=== PATIENT | female | born 1960 | race Caucasian/White ===

== ENCOUNTER 2023-09-13 19:09 | Emergency (ER) | payer SELFPAY ==
[2023-09-13 19:14] VITALS: BP 100/60; PULSE 63; O2SAT 98
--- NOTE | 2023-09-13 19:16 | ECG_ITS ---
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
--- NOTE | 2023-09-13 19:16 | CT_ITS ---
[address] [address] Patient Name: TISH BOSS MRN: [id number] date: 1960 Sex: F Assigned Patient Location: ER Current Patient Location: ED.MAIN Accession/Order Number: [id number] Exam Date: 09/13/2023 20:20 Report Date: 09/13/2023 21:40 At the request of: AMANDA ARAMBULA Procedure: CT angio chest Contrast-enhanced CTA of the chest, abdomen and pelvis dated 09/13/2023. Indication: Chest pain. Comparison: CT abdomen/pelvis 09/11/2021 . Technique: Thin section arterial phase images of the thorax, abdomen and pelvis before and after the injection of intravenous nonionic iodinated contrast. Advanced 3D post processing was performed at an independent work station to further evaluate the suspected abnormality of the vasculature. Findings: Vasculature: Heart is not enlarged. No thoracic aortic aneurysm or dissection. No significant atherosclerotic changes. Origins of the great vessels from the aortic arch are without significant stenosis. No dilatation of the iliac arteries. No pulmonary embolus identified. Chest: No pulmonary nodules, areas of airspace disease, pleural effusions, pericardial effusions or enlarged lymph nodes in the thorax. No pneumothorax. Abdomen/pelvis: Early arterial phase of imaging is dedicated for the vasculature and limited for the remainder of the abdomen and pelvis. Additionally assessment limited by lack of oral contrast. Moderate 2 severe peripancreatic and pancreatic interstitial edema. No overt pancreatic necrosis or loculated fluid collections. Probable reactive enteritis of the adjacent duodenum and proximal jejunal loops. Bilateral hypoattenuating renal lesions, some which are compatible with simple cysts and others which are too small to accurately characterize, and for which no imaging follow-up is recommended. The liver, spleen, adrenal glands are unremarkable. Gallbladder present. No enlarged lymph nodes, free fluid, or free air. The bowel is without evidence of obstruction or adjacent inflammatory changes. Bladder unremarkable. CT/CT angio chest IMPRESSION: 1. Acute interstitial edematous pancreatitis. Probable adjacent reactive enteritis. 2. No pulmonary embolism. 3. No aortic aneurysm or dissection. Electronically authenticated by: GARETH MADDEN Date: 09/13/2023 21:40
--- NOTE | 2023-09-13 19:16 | CT_ITS ---
[address] [address] Patient Name: TISH BOSS MRN: [id number] date: 1960 Sex: F Assigned Patient Location: ER Current Patient Location: ED.MAIN Accession/Order Number: [id number] Exam Date: 09/13/2023 20:20 Report Date: 09/13/2023 21:40 At the request of: AMANDA ARAMBULA Procedure: CT angio abdomen pelvis Contrast-enhanced CTA of the chest, abdomen and pelvis dated 09/13/2023. Indication: Chest pain. Comparison: CT abdomen/pelvis 09/11/2021 . Technique: Thin section arterial phase images of the thorax, abdomen and pelvis before and after the injection of intravenous nonionic iodinated contrast. Advanced 3D post processing was performed at an independent work station to further evaluate the suspected abnormality of the vasculature. Findings: Vasculature: Heart is not enlarged. No thoracic aortic aneurysm or dissection. No significant atherosclerotic changes. Origins of the great vessels from the aortic arch are without significant stenosis. No dilatation of the iliac arteries. No pulmonary embolus identified. Chest: No pulmonary nodules, areas of airspace disease, pleural effusions, pericardial effusions or enlarged lymph nodes in the thorax. No pneumothorax. Abdomen/pelvis: Early arterial phase of imaging is dedicated for the vasculature and limited for the remainder of the abdomen and pelvis. Additionally assessment limited by lack of oral contrast. Moderate 2 severe peripancreatic and pancreatic interstitial edema. No overt pancreatic necrosis or loculated fluid collections. Probable reactive enteritis of the adjacent duodenum and proximal jejunal loops. Bilateral hypoattenuating renal lesions, some which are compatible with simple cysts and others which are too small to accurately characterize, and for which no imaging follow-up is recommended. The liver, spleen, adrenal glands are unremarkable. Gallbladder present. No enlarged lymph nodes, free fluid, or free air. The bowel is without evidence of obstruction or adjacent inflammatory changes. Bladder unremarkable. CT/CT angio abdomen pelvis IMPRESSION: 1. Acute interstitial edematous pancreatitis. Probable adjacent reactive enteritis. 2. No pulmonary embolism. 3. No aortic aneurysm or dissection. Electronically authenticated by: GARETH MADDEN Date: 09/13/2023 21:40
--- NOTE | 2023-09-13 19:19 | ED.GENADUL1 ---
HPI HPI - General Adult General Chief complaint: Abdominal Pain Stated complaint: DIFF BREATHING, VOMITTING, ABD PAIN Time Seen by Provider: 09/13/23 19:10 History of Present Illness HPI narrative: Patient is a 63-year-old female who presents to the emergency department for sudden onset of diffuse abdominal pain radiating into the chest that began 30 minutes ago at rest. She had just finished eating dinner. She states she feels very short of breath and has been vomiting. Patient is yelling and moaning at initial interview and history is very difficult. She has a history of cardiomyopathy and sees [facility] for [facility]ology. She has had a previous cholecystectomy, appendectomy, total hysterectomy. She has not had any urinary symptoms or diarrhea. She states she just got back from [place] 1 week ago. She does not believe her legs are swollen. She has had cough, no fevers or other upper respiratory symptoms. Related Data Home Medications ?Medication ?Instructions ?Recorded ?Confirmed cyclobenzaprine 10 mg tablet 10 mg PO QAM 09/13/23 09/13/23 furosemide 20 mg tablet (Lasix) 20 mg PO DAILY 09/13/23 09/13/23 lorazepam 2 mg tablet 2 mg PO DAILY 09/13/23 09/13/23 metoprolol succinate 100 mg 100 mg PO DAILY 09/13/23 09/13/23 tablet,extended release 24 hr montelukast 10 mg tablet 10 mg PO DAILY 09/13/23 09/13/23 omeprazole 20 mg capsule,delayed 20 mg PO DAILY 09/13/23 09/13/23 release sacubitril 24 mg-valsartan 26 mg 1 tab PO BID 09/13/23 09/13/23 tablet (Entresto) spironolactone 25 mg tablet 25 mg PO DAILY 09/13/23 09/13/23 (Aldactone) Allergies Allergy/AdvReac Type Severity Reaction Status Date / Time No Known Drug Allergies Allergy Verified 09/13/23 19:25 Opioid HPI Opioid Management Most Recent Opioid Data: Last Pain Scale 10 09/13/23 19:31 Last JUL Pain Assessment 09/13/23 19:31 Review of Systems ROS Constitutional Denies: fever or chills Ears, nose, mouth, and throat Denies: throat pain or nasal congestion Cardiovascular Reports: chest pain Respiratory Reports: shortness of breath and cough Gastrointestinal Reports: abdominal pain, nausea and vomiting; Denies: diarrhea Musculoskeletal Denies: back pain or neck pain Integumentary/Breast Denies: rash Neurological Denies: headache Endocrine Denies: excessive urination Hematologic/Lymphatic Denies: easy bruising or easy bleeding Exam Narrative Exam Narrative: Gen.: Awake, Moaning Head: Normocephalic, atraumatic ENT: Moist mucous membranes Respiratory: No respiratory distress, lungs clear bilaterally, No wheezing or rhonchi Cardio: Regular rate and rhythm Gastrointestinal: Abdomen is soft, Obese and nondistended. Mildly tender in the epigastrium although there is no guarding or rebound. No pain out of proportion on exam, no complaints of pain with palpation of the entire abdomen other than the epigastrium. Extremities: Moves extremities equally, no pedal edema Psych: Yelling and moaning although easily distracted and the moaning stops, clear speech Neuro: No focal neuro deficit Skin: Warm, dry, intact Constitutional Vital Signs, click to edit/add: Last Vital Signs Temp 98.5 F 09/13/23 20:00 Pulse 85 09/13/23 21:00 Resp 22 H 09/13/23 21:00 BP 112/72 09/13/23 21:00 Pulse Ox 96 09/13/23 21:00 Course Vital Signs Vital signs: Vital Signs Pulse Rate 63 09/13/23 19:14 Respiratory Rate 28 H 09/13/23 19:14 Blood Pressure 100/60 09/13/23 19:14 Pulse Oximetry 98 09/13/23 19:14 Temperature 98.5 F 09/13/23 20:00 Pulse Rate 85 09/13/23 21:00 Respiratory Rate 22 H 09/13/23 21:00 Blood Pressure 112/72 09/13/23 21:00 Pulse Oximetry 96 09/13/23 21:00 Medical Decision Making MDM Narrative Medical decision making narrative: On arrival to the emergency department, patient was moaning, restless with complaint of epigastric abdominal pain radiating into the chest with shortness of breath. She had no hypoxia or tachycardia in the ER. She was given gentle IV fluids due to her history of cardiomyopathy and CHF and was treated with Dilaudid, Zofran with improvement. She was also given Pepcid, Solu-Medrol and Benadryl to pretreat for CT because she states that she had dye injected into her cervix over 25 years ago and may have had a reaction. She had no issue with the CT scanning in the emergency department. No evidence of allergic reaction. She maintains normal vital signs. Labs show elevated white blood cell count with elevated LFTs, normal bilirubin and lipase over 3000. Ativan was ordered for the patient but she had significant clinical improvement after medication administration initially. She was remedicated for pain after CT. She requested pain medication not as strong as the Dilaudid as it made her dizzy initially. CT scanning shows the patient has no evidence of PE or aortic dissection but she does have significant interstitial edematous pancreatitis. CT dictation by the radiologist states that the gallbladder is present, however the patient is adamant that she has had a cholecystectomy and CT images were reviewed by myself and attending physician with no evidence of a gallbladder on the images. I discussed the case with Dr. López for general surgery, he stated that the patient will likely require an ERCP and GI evaluation. Patient was reevaluated by attending physician and they request transfer to [facility] in [place]. Transfer initiated at 2199. Discussed with Dr. Pittman ([id number]) for GI at [facility], he requested the patient be kept NPO and admitted to hospitalist service. 2239: Claudia Hutson NP accepted the patient for transfer to hospitalist under Dr. Pitts. Case is turned over to attending physician at this time. Medical Records Medical records reviewed: Yes I reviewed the patient's medical records Lab Data Lab results reviewed: Yes I reviewed the patient's lab results Labs: Lab Results 09/13/23 Range/Units 19:24 WBC 21.1 H (4.0-11.0) 10^3/uL RBC 5.03 (4.20-5.40) 10^6/uL Hgb 15.2 (12.0-16.0) g/dL Hct 43.2 (36.0-48.0) % MCV 85.9 (81.0-99.0) fL MCH 30.2 (26.7-34.0) pg MCHC 35.2 (29.9-35.2) g/dL RDW 12.4 (11.0-15.0) % Plt Count 394 (150-450) 10^3/uL MPV 9.2 L (9.5-13.5) fL Neut % (Auto) 73.6 (43.0-75.0) % Lymph % (Auto) 17.3 L (20.5-60.0) % [place] % (Auto) 6.9 (1.7-12.0) % Eos % (Auto) 1.0 (0.9-7.0) % Baso % (Auto) 0.4 (0.2-2.0) % Neut # (Auto) 15.6 H (1.4-6.5) 10^3/uL Lymph # (Auto) 3.7 (1.2-3.8) 10^3/uL [place] # (Auto) 1.5 H (0.3-0.8) 10^3/uL Eos # (Auto) 0.2 (0.0-0.7) 10^3/uL Baso # (Auto) 0.1 (0.0-0.1) 10^3/uL Abs Immat Gran (auto) 0.17 H (0.00-0.03) 10^3/uL Imm/Tot Granulo (auto) 0.8 H (0.0-0.5) % PT 9.9 (9.0-11.6) sec INR 0.93 Sodium 137 (136-145) mmol/L Potassium 4.0 (3.5-5.1) mmol/L Chloride 100 (98-107) mmol/L Carbon Dioxide 19.6 L (21.0-32.0) mmol/L Anion Gap 21.4 BUN 23.0 H (7.0-18.0) mg/dL Creatinine 1.11 H (0.55-1.02) mg/dL Est GFR ( Amer) >60 (>=60) Est GFR (Non-Af Amer) 50 L (>=60) BUN/Creatinine Ratio 20.7 Glucose 204 H (74-106) mg/dL Lactate 2.6 H* (0.4-2.0) mmol/L Calcium 10.2 H (8.5-10.1) mg/dL Total Bilirubin 1.0 (0.2-1.0) mg/dL Direct Bilirubin 0.3 H (0.0-0.2) mg/dL AST 157 H (15-37) U/L ALT 151 H (14-59) U/L Alkaline Phosphatase 215 H (46-116) U/L Troponin I High Sens 4.7 (4.0-51.3) pg/mL NT-Pro-B Natriuret Pep 95.0 (<=900.0) pg/mL Total Protein 7.7 (6.4-8.2) g/dL Albumin 4.1 (3.4-5.0) g/dL Globulin 3.6 g/dL Albumin/Globulin Ratio 1.1 Lipase 3923.0 H* (16.0-77.0) U/L Imaging Data CT scan - chest: Attestation: I have reviewed the pertinent imaging results. Radiologist's impression: ITS Impressions Abdomen/Pelvis CTA 09/13/23 19:16 IMPRESSION: 1. Acute interstitial edematous pancreatitis. Probable adjacent reactive enteritis. 2. No pulmonary embolism. 3. No aortic aneurysm or dissection. Electronically authenticated by: GARETH MADDEN Date: 09/13/2023 21:40 Chest CTA 09/13/23 19:16 IMPRESSION: 1. Acute interstitial edematous pancreatitis. Probable adjacent reactive enteritis. 2. No pulmonary embolism. 3. No aortic aneurysm or dissection. Electronically authenticated by: GARETH MADDEN Date: 09/13/2023 21:40 ECG Data Attestation: I personally reviewed and interpreted this ECG as follows: (Normal sinus rhythm at a rate of 88, no acute ST elevation or ectopy. EKG reviewed by attending physician) Discharge Plan Discharge Chief Complaint: Abdominal Pain Clinical Impression: Transaminitis, Pancreatitis, Abdominal pain Patient Disposition: [facility] Time of Disposition Decision: 22:00 Discharge Location: [facility] Mode of Transportation: EMS
[2023-09-13] MEDS: ONDANSETRON PF 4 MG/2 ML VIAL IV ×2 (19:31→20:12)
[2023-09-13] MEDS: HYDROMORPHONE HCL 1 MG/ML CARTRIDGE IVP (19:31)
[2023-09-13] MEDS: 0.9 % SODIUM CHLORIDE 1,000 ML 1000 ML IV (19:32)
[2023-09-13 19:43] LABS: Basophils Absolute Auto 0.1 10^3/uL (0.0-0.1); Basophils Percent Auto 0.4 % (0.2-2.0); Eosinophils Absolute Auto 0.2 10^3/uL (0.0-0.7); Hematocrit 43.2 % (36.0-48.0); Hemoglobin 15.2 g/dL (12.0-16.0); Immature Granulocytes Abs Auto 0.17 10^3/uL (0.00-0.03); Immature Granulocytes Pct Auto 0.8 % (0.0-0.5); Lymphocytes Absolute Auto 3.7 10^3/uL (1.2-3.8); Lymphocytes Percent Auto 17.3 % (20.5-60.0); Mean Corpuscular HGB Conc 35.2 g/dL (29.9-35.2); Mean Corpuscular Hemoglobin 30.2 pg (26.7-34.0); Mean Corpuscular Volume 85.9 fL (81.0-99.0); Mean Platelet Volume 9.2 fL (9.5-13.5); Monocytes Absolute Auto 1.5 10^3/uL (0.3-0.8); Monocytes Percent Auto 6.9 % (1.7-12.0); Neutrophils Absolute Auto 15.6 10^3/uL (1.4-6.5); Neutrophils Percent Auto 73.6 % (43.0-75.0); Platelet Count 394 10^3/uL (150-450); Red Blood Count 5.03 10^6/uL (4.20-5.40); Red Cell Distribution Width 12.4 % (11.0-15.0); White Blood Count 21.1 10^3/uL (4.0-11.0)
[2023-09-13 19:47] VITALS: BP 118/80; PULSE 82; O2SAT 97
[2023-09-13 19:54] LABS: INR 0.93; Prothrombin Time 9.9 sec (9.0-11.6)
[2023-09-13 19:57] LABS: Alanine Aminotransferase 151 U/L (14-59); Albumin Globulin Ratio 1.1; Albumin Level 4.1 g/dL (3.4-5.0); Alkaline Phosphatase 215 U/L (46-116); Anion Gap 21.4; Aspartate Amino Transferase 157 U/L (15-37); BUN Creatinine Ratio 20.7; Calcium 10.2 mg/dL (8.5-10.1); Carbon Dioxide 19.6 mmol/L (21.0-32.0); Chloride 100 mmol/L (98-107); Estimated GFR (African America >60 (>=60); Estimated GFR (Non-African Ame 50 (>=60); Globulin 3.6 g/dL; Glucose 204 mg/dL (74-106); Sodium 137 mmol/L (136-145); Total Protein 7.7 g/dL (6.4-8.2)
[2023-09-13 20:00] VITALS: TEMP 36.9
[2023-09-13 20:03] LABS: Troponin I High Sensitivity 4.7 pg/mL (4.0-51.3)
[2023-09-13 20:04] LABS: Lactate/Lactic Acid 2.6 mmol/L (0.4-2.0)
[2023-09-13] MEDS: FAMOTIDINE/PF 20 MG/2 ML VIAL IV (20:13)
[2023-09-13] MEDS: METHYLPREDNISOLONE SOD SUCC PF 125 MG/2 ML VIAL IVP (20:14)
[2023-09-13] MEDS: DIPHENHYDRAMINE HCL 50 MG/ML (1ML) VIAL 25 MG IV (20:16)
[2023-09-13 21:00] VITALS: BP 112/72; PULSE 85; O2SAT 96
[2023-09-13 21:01] LABS: Bilirubin Direct 0.3 mg/dL (0.0-0.2)
[2023-09-13] MEDS: 0.9 % SODIUM CHLORIDE 1,000 ML 100 ML IV (21:18)
[2023-09-13] MEDS: MORPHINE SULFATE 2 MG/ML SYRINGE IV (21:58)
[2023-09-13] MEDS: PROMETHAZINE HCL 12.5 MG in 0.9 % SODIUM CHLORIDE 50 ML 202 MG IV (22:08)
[2023-09-13 23:10] LABS: Lactate/Lactic Acid 3.5 mmol/L (0.4-2.0)
[2023-09-13 23:23] VITALS: BP 119/76; PULSE 87; O2SAT 97
[2023-09-14 01:25] VITALS: BP 118/81; PULSE 83; O2SAT 96
[2023-09-14] MEDS: MORPHINE SULFATE 2 MG/ML SYRINGE IV (01:32)
[2023-09-14 01:45] VITALS: BP 118/81; PULSE 83; O2SAT 97
== END 2023-09-14 01:45 | disposition short-term general hospital (02) ==
PROVIDERS: Physician Assistant; Emergency Provider Student in an Organized Health Care Education/Training Program
DX: K85.90 Acute pancreatitis without necrosis or infection, unspecified (principal); R10.9 Unspecified abdominal pain; R74.01 Elevation of levels of liver transaminase levels; Z90.710 Acquired absence of both cervix and uterus; Z90.49 Acquired absence of other specified parts of digestive tract; Z79.899 Other long term (current) drug therapy; I42.9 Cardiomyopathy, unspecified; I50.9 Heart failure, unspecified
CPT/HCPCS: 36415; 71275; 74174; 80053; 82248; 83605; 83690; 83880; 84484; 85025; 85610; 93005; 99285; J1170; J2919; Q9967